=== PATIENT | male | born 1955 | race Caucasian/White ===

== ENCOUNTER 2020-03-16 13:30 | Outpatient (CLI) | payer MEDICARE, BC ==
--- NOTE | 2020-03-16 14:55 | RAD ---
RIGHT FOOT 3 VIEWS: Date: 03/16/2020 HISTORY: Arthralgia of right foot, fall, right foot pain. FINDINGS/IMPRESSION: Degenerative changes are seen, most prominent in the first MTP joint. No acute fracture or dislocation is identified. POS: [facility]
== END 2020-03-16 13:31 | disposition home or self-care (01) ==
LOC: SCSRAD 13:30
PROVIDERS: ATTEND Family Medicine
DX: M25.571 Pain in right ankle and joints of right foot (principal); M19.071 Primary osteoarthritis, right ankle and foot